=== PATIENT | male | born 1980 | race Two or more races ===

== ENCOUNTER 2017-04-07 15:49 | Emergency (ER) | payer OTHER ==
[2017-04-07] MEDS: IV NORMAL SALINE 1000ML BAG 1,000 ML IV ×2 (16:20→20:00)
[2017-04-07 16:23] LABS: ADD MAN DIFF? NO
[2017-04-07 16:26] LABS: BASO % 1 % (0-3); EOS % 0 % (0-3); HEMATOCRIT 45.6 % (39.0-53.0); HEMOGLOBIN 15.9 g/dL (13.0-17.5); LYMPH # 4.3 x10^3/uL (1.0-4.8); LYMPH % 54 % (24-48); MEAN CORPUSCULAR HEMOGLOBIN 29 pg (25-35); MEAN CORPUSCULAR HGB CONC 35 g/dL (31-37); MEAN CORPUSCULAR VOLUME 83 fL (79-100); MONO # 0.2 x10^3/uL (0.0-1.1); MONO % 3 % (0-9); NEUT # 3.3 x10^3uL (1.8-7.7); NEUT % 42 % (31-73); PLATELET COUNT 304 x10^3/uL (140-400); RED BLOOD COUNT 5.53 x10^6/uL (4.30-5.70); WHITE BLOOD COUNT 7.9 x10^3/uL (4.0-11.0)
[2017-04-07 16:38] LABS: ANION GAP 16 (6-14); BLOOD UREA NITROGEN 14 mg/dL (8-26); CALCIUM 7.9 mg/dL (8.5-10.1); CARBON DIOXIDE 23 mmol/L (21-32); CHLORIDE 106 mmol/L (98-107); CREATININE 0.8 mg/dL (0.7-1.3); GFR 109.4; GLUCOSE 108 mg/dL (70-99); LIPASE 98 U/L (73-393); MAGNESIUM 1.9 mg/dL (1.8-2.4); POTASSIUM 3.7 mmol/L (3.5-5.1); SODIUM 145 mmol/L (136-145)
[2017-04-07 16:49] LABS: ETHANOL 470 mg/dL (0-10)
[2017-04-07 16:50] LABS: CKMB INDEX 0.8 % (0-4); CKMB MASS 1.1 ng/mL (0.0-3.6); CREATINE KINASE 131 U/L (39-308)
[2017-04-07 18:41] LABS: BILIRUBIN,URINE NEGATIVE (NEG); CLARITY,URINE CLOUDY; COLOR,URINE YELLOW; GLUCOSE,URINE NEGATIVE (NEG); NITRITE,URINE NEGATIVE (NEG); PH,URINE 5.5; PROTEIN,URINE >=300 mg/dL (NEG-TRACE); UROBILINOGEN,URINE 0.2 mg/dL (0.2 mg/dL)
[2017-04-07 18:49] LABS: BACTERIA,URINE 0 /HPF (0-FEW); GRANULAR CASTS,URINE FEW /HPF; HYALINE CASTS, URINE MANY /HPF; RBC,URINE 0 /HPF (0-2)
[2017-04-07 18:50] LABS: BARBITURATES NEG (NEG); BENZODIAZEPINES NEG (NEG); CANNABINOIDS NEG (NEG); COCAINE NEG (NEG); METHADONE NEG (NEG); OPIATES NEG (NEG); PHENCYCLIDINE NEG (NEG)
[2017-04-07 18:53] LABS: AMPHETAMINE/METHAMPHETAMINE NEG (NEG); ETHANOL, URINE POS (NEG)
== END 2017-04-07 21:24 | disposition home or self-care (01) ==
LOC: ER 15:49
DX: F10.129 Alcohol abuse with intoxication, unspecified (principal)
CPT/HCPCS: 36415; 80048; 80307; 81001; 82553; 83690; 83735; 85025; 93005; 96360; 96361; 99285-25; G0480; J7030